=== PATIENT | male | born 1960 | race Two or more races ===

== ENCOUNTER 2024-02-03 05:12 | Emergency (ER) | payer OTHER ==
[~2024-02-03] VITALS: Ht 177.8 cm; Wt 95.7 kg
[~2024-02-03 05:12] MED LIST: FERROCITE324 MG; GEMFIBROZIL600 MG PO; HUMALOG100 UNIT/2 SQ; LANTUS SOL100 UNIT/1 SQ; SIMVASTATIN5 MG; SIMVASTATIN5 MG PO; TAMS0.4C PO
[2024-02-03] MEDS ORDERED: ENALAPRIL MALEA10 MG PO (05:28)
== END 2024-02-03 06:15 | disposition home or self-care (01) ==
LOC: ER 05:12
DX: T83.011A Breakdown (mechanical) of indwelling urethral catheter, initial encounter (principal); Y92.89 Other specified places as the place of occurrence of the external cause; R33.8 Other retention of urine; N40.0 Benign prostatic hyperplasia without lower urinary tract symptoms; E11.9 Type 2 diabetes mellitus without complications; Z79.4 Long term (current) use of insulin; I10 Essential (primary) hypertension

== ENCOUNTER 2024-02-26 07:45 | Inpatient (IN) | payer OTHER ==
[~2024-02-26] VITALS: Ht 154.9 cm; Wt 94.8 kg
[~2024-02-26 07:45] MED LIST changes: +ENALAPRIL MALEA10 MG PO
[2024-02-26 09:49] LABS: HEMATOCRIT 36.9 % (39.0-48.0); HEMOGLOBIN 12.6 g/dL (13-16.00); MEAN CELL VOLUME 87.2 fL (80.0-100.00); MEAN CORPUSCULAR HEMOGLOBIN 29.8 pg (27.00-32.0); MEAN CORPUSCULAR HGB CONC 34.1 g/dl (32.0-36.0); PLATELET COUNT 205 K/uL (150-450); RED BLOOD COUNT 4.23 M/uL (4.00-6.00); RED CELL DISTRIBUTION WIDTH 14.6 % (11.5-14.5)
[2024-02-26 10:54] LABS: INR 0.99; PARTIAL THROMBOPLASTIN TIME 28.4 SECONDS (22.0-34.0); PROTHROMBIN TIME 10.8 SECONDS (9.0-11.5)
[2024-02-26] MEDS ORDERED: VITAMIN D310 MCG/1 M PO (11:05)
[2024-02-26] MEDS ORDERED: LIPOFEN50 MG PO (11:05)
[2024-02-26] MEDS ORDERED: GEMFIBROZIL600 MG PO (11:05)
[2024-02-26 11:10] VITALS: BP 132/79
[2024-02-26 11:13] LABS: CREATININE SERUM 1.24 mg/dL (0.70-1.30); GFR 58.69; POTASSIUM 4.81 mEq/L (3.5-5.1)
[2024-02-26 11:52] LABS: URINE APPEARANCE Clear; URINE BILIRRUBIN Negative (NEGATIVE); URINE BLOOD Negative; URINE COLOR Yellow; URINE GLUCOSE Negative (NEGATIVE); URINE KETONE Negative (NEGATIVE); URINE LEUKOCYTE Negative; URINE NITRATE Negative; URINE PROTEIN Negative (NEGATIVE); URINE UROBILINOGEN 0.2 E.U./dl
[2024-02-26 11:53] LABS: URINE BACTERIA 28.9 uL (0.0-1933); URINE EPITHELIAL CELLS 2.4 uL (0.0-38.8); URINE WBC 9.8 uL (0.0-23.2)
[2024-02-26 11:57] LABS: URINE RBC 0.4 uL (0.0-20.8)
[2024-02-29] MEDS ORDERED: ENOXAPARIN SODIUM 40 MG/0.4 ML SYRINGE SUBCUTANEO ONE (13:10)
[2024-02-29] MEDS ORDERED: ERTAPENEM SODIUM 1,000 MG in 0.9 % SODIUM CHLORIDE 50 ML IV ONE (14:45)
[2024-02-29] MEDS ORDERED: CHLORHEXIDINE GLUCONATE 120 ML BOTTLE TOP ONE (14:59)
[2024-02-29] MEDS ORDERED: SUGAMMADEX SODIUM 200 MG/2 ML VIAL IV ONE (20:19)
[2024-02-29] MEDS ORDERED: DEXTROSE 5 %-0.45 % SOD CHLORD 1,000 ML IV SCH (20:47)
[2024-02-29] MEDS ORDERED: FAMOtidine 20 MG TABLET PO SCH (20:48)
[2024-02-29] MEDS ORDERED: DOCUSATE SODIUM 100MG CAP PO SCH (20:48)
[2024-02-29] MEDS ORDERED: ONDANSETRON HCL 2 MG/ML VIAL IV PRN (21:00)
[2024-02-29] MEDS ORDERED: INSULIN LISPRO 1,000 UNIT/10 ML UNITS SUBCUTANEO PRN (21:00)
[2024-02-29] MEDS ORDERED: ENALAPRILAT DIHYDRATE 1.25 MG/ML VIAL IV PRN (21:00)
[2024-02-29] MEDS ORDERED: DEXTROSE 50 % IN WATER 0.5 G/ML DISP.SYRIN IV PRN (21:00)
[2024-02-29] MEDS ORDERED: MORPHINE SULFATE 2 MG/ML CARTRIDGE IV PRN (21:00)
[2024-02-29] MEDS ORDERED: MORPHINE SULFATE 4 MG/ML VIAL IV ONE ×2 (21:10→21:40)
[2024-03-01] VITALS: BP 127/75; O2SAT 95
[2024-03-01] MEDS ORDERED: CEFAZOLIN SODIUM 1,000 MG VIAL IV SCH (01:00)
[2024-03-01 08:00] VITALS: BP 127/72; O2SAT 97
[2024-03-01 08:14] LABS: HEMATOCRIT 32.5 % (39.0-48.0); HEMOGLOBIN 11.3 g/dL (13-16.00); MEAN CELL VOLUME 86.8 fL (80.0-100.00); MEAN CORPUSCULAR HEMOGLOBIN 30.1 pg (27.00-32.0); MEAN CORPUSCULAR HGB CONC 34.7 g/dl (32.0-36.0); PLATELET COUNT 199 K/uL (150-450); RED BLOOD COUNT 3.74 M/uL (4.00-6.00); RED CELL DISTRIBUTION WIDTH 14.7 % (11.5-14.5)
[2024-03-01 08:46] LABS: CALCIUM 8.3 mg/dL (8.5-10.1); CREATININE SERUM 1.58 mg/dL (0.70-1.30); GFR 44.37; POTASSIUM 4.7 mEq/L (3.5-5.1)
[2024-03-01] MEDS ORDERED: SIMETHICONE 125 MG CAPSULE PO SCH (09:00)
[2024-03-01] MEDS ORDERED: 0.9 % SODIUM CHLORIDE 1,000 ML IV ONE (10:15)
[2024-03-01 16:53] VITALS: BP 121/28; O2SAT 97
[2024-03-01] MEDS ORDERED: SODIUM CHLORIDE 0.45 % 1,000 ML IV SCH (18:43)
[2024-03-01] MEDS ORDERED: INSULIN GLARGINE,HUM.REC.ANLOG 1,000 UNITS/10 ML UNITS SUBCUTANEO SCH (21:00)
[2024-03-01] MEDS ORDERED: ENOXAPARIN SODIUM 40 MG/0.4 ML SYRINGE SUBCUTANEO SCH (21:00)
[2024-03-02 00:21] VITALS: BP 119/74; O2SAT 95
[2024-03-02 08:02] LABS: ALBUMIN 3.1 gm/dL (3.4-5.0); BILIRUBIN TOTAL 0.45 mg/dL (0.3-1.2); CALCIUM 8.2 mg/dL (8.5-10.1); CREATININE SERUM 1.41 mg/dL (0.70-1.30); GFR 50.6; GLOBULINA 2.8 G/DL (2.4-3.5); POTASSIUM 4.08 mEq/L (3.5-5.1); TOTAL PROTEIN 5.9 gm/dL (6.4-8.2)
[2024-03-02 09:10] VITALS: BP 149/86; O2SAT 97
== END 2024-03-02 16:40 | disposition home or self-care (01) | DRG 718 ==
LOC: SURH 02-29 07:45 → O/R 02-29 08:31 → SURH 02-29 12:15
PROVIDERS: Internal Medicine; ADMIT Urology; ATTEND Urology
PROC: 8E0W4CZ Robotic Assisted Procedure of Trunk Region, Percutaneous Endoscopic Approach (ICD-10-PCS; 2024-02-29)
PROC: 0VB04ZZ Excision of Prostate, Percutaneous Endoscopic Approach (ICD-10-PCS; principal; 2024-02-29 12:15)
DX: N40.1 Benign prostatic hyperplasia with lower urinary tract symptoms (principal); R33.9 Retention of urine, unspecified
CPT/HCPCS: 55867; S2900